=== PATIENT | female | born 2000 | race African-American/Black ===

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

== ENCOUNTER 2025-06-22 08:30 | Emergency (ER) | payer SELFPAY ==
[2025-06-22] MEDS ORDERED: Ibuprofen 200 MG TAB ONE (09:31)
== END 2025-06-22 10:13 | disposition home or self-care (01) ==
LOC: CSHERS 08:30
DX: J02.9 Acute pharyngitis, unspecified (principal)
CPT/HCPCS: 87081; 87428; 87430; 99283